=== PATIENT | female | born 1990 | race African-American/Black ===

== ENCOUNTER → 2021-07-04 | Emergency (ER) | payer MEDICAID ==
[~2021-07-04] VITALS: Ht 165.1 cm; Wt 71.0 kg
[~2021-07-04] MED LIST: IBUP-2029 MT
[2021-07-04 04:11] VITALS: BP 125/85
[2021-07-04] MEDS: KETOROLAC 30MG/ML VIAL IM ONE ×2 (04:54→05:12)
== END ==
LOC: ER 04:02
DX: S20.214A Contusion of middle front wall of thorax, initial encounter (principal); X58.XXXA Exposure to other specified factors, initial encounter; Y93.89 Activity, other specified; Y92.89 Other specified places as the place of occurrence of the external cause; Y99.8 Other external cause status; E78.00 Pure hypercholesterolemia, unspecified
CPT/HCPCS: 71045; 81025; 93005; 99283; J1885